=== PATIENT | female | born 1965 | race Caucasian/White ===

== ENCOUNTER 2022-04-16 09:55 | Emergency (ER) | payer OTHER, SELFPAY ==
--- NOTE | ~2022-04-16 | XR_ITS ---
EXAMINATION: XR ankle RT min 3V DATE: 04/16/2022 10:21 INDICATION: Diffuse right ankle pain post injury TECHNIQUE: Anteroposterior, oblique, mortise, and lateral views of the right ankle were obtained. COMPARISON: None. FINDINGS: Nondisplaced transverse fracture across the lateral malleolus which is seen medial cortex 1 cm below level of the tibiotalar joint line consistent with a Marques type A fracture. There is overlying soft t issue swelling. No other fractures identified. Small heterotopic ossicles near the tip the medial mal leolus likely sequela of chronic deltoid ligament sprain with no overlying soft tissue swelling to el evate suspicion for acute deltoid ligament sprain. Joint spaces are normal. Moderate-sized right ankl e joint effusion. Moderate-sized plantar calcaneal spur. IMPRESSION: 1. Nondisplaced Marques type B fracture at the lateral malleolus with moderate sized right ankle joint effusion. Reviewed, dictated and finalized at location A. IMPRESSION: 1. Nondisplaced Marques type B fracture at the lateral malleolus with moderate si zed right ankle joint effusion.
[2022-04-16 10:06] VITALS: BP 128/82; PULSE 73; RESP 16; TEMP 35.8; O2SAT 100
--- NOTE | 2022-04-16 10:10 | ED.LOWEXIN ---
HPI - Extremity Injury (Lower) General Chief Complaint: Extremity Injury, Lower Stated Complaint: Right Ankle Pain Time Seen by Provider: 04/16/22 10:25 Source: patient, RN notes reviewed and old records reviewed Mode of arrival: ambulatory Limitations: no limitations History of Present Illness HPI Narrative: 56-year-old female presents to the [facility] with right ankle pain after rolling it yesterday. Bruising noted to the lateral aspect. Swelling noted to the entire ankle. Has been using crutches but still walking on it since yesterday. Onset (ago): day(s) (1) Related Data Allergies Allergy/AdvReac Type Severity Reaction Status Date / Time No Known Allergies Allergy Verified 04/16/22 10:55 Review of Systems Review of Systems: All systems reviewed & are unremarkable except as noted in HPI and below Constitutional: Constitutional: Reports no additional constitutional complaints, Denies chills and Denies fever(s) Eyes: Eyes: Reports no additional eye complaints ENT: Reports system reviewed and no additional complaints, except as documented Cardiovascular: Cardiovascular: Reports no additional cardiovascular complaints Respiratory: Respiratory: Reports no additional respiratory complaints Gastrointestinal: Gastrointestinal: Reports no additional gastrointestinal complaints Musculoskeletal: Musculoskeletal: Reports as per HPI, Reports arthralgias (Right ankle) and Reports joint swelling (Right ankle) Integumentary/Breasts: Skin/Breast: Reports system reviewed and no additional complaints, except as docu Neurologic: Reports system reviewed and no additional complaints, except as documented Psychiatric: Psychiatric: Reports no additional psychiatric complaints Allergic/Immunologic: Allergic/Immunologic: Reports no additional allergic/immunologic complaints PMFSH Past Medical History Medical History (Updated 04/16/22 @ 12:10 by Glendy Cruz APRN) Patient denies medical problems Surgical History Surgical History (Updated 04/16/22 @ 12:10 by Glendy Cruz APRN) No pertinent past surgical history Social History Social History (Updated 04/16/22 @ 12:10 by Glendy Cruz APRN) Gender identity (if verbalized by the patient): Female Comments At the time of my signature, I reviewed and agree with the nursing past medical, surgical, social, and family history. There is no relevant family history pertinent to the patient complaint. Exam Const: General: healthy appearing, no acute distress, alert and well nourished Nutritional Appearance: well nourished Orientation/consciousness: patient oriented x3 Limitations: no limitations HENMT: Head: normal to inspection Ears: external ears normal Eyes: General: appearance normal, both eyes and all related structures Pupils: Equal, round and reactive pupils present Neck: Neck: normal visual inspection, no lymphadenopathy and no meningeal signs Chest: Chest palpation & inspection: normal inspection of the chest Resp: Effort & Inspection: normal respiratory effort and no use of accessory muscles Auscultation: clear to auscultation bilaterally, no crackles, no rales, no rhonchi and no wheezes Cardio: Rate: regular rate Rhythm: regular rhythm Back/Spine/Pelvis: Back: no CVA tenderness and No back tenderness Skin: General skin exam: normal color Rashes: no rashes Wounds: no wounds Neuro: General: patient oriented x3, moves all extremities, no meningeal signs and no focal motor deficits Cranial nerves: Yes Equal, round and reactive pupils present Speech: normal speech Gait exam (Neuro): Normal gait present Extrem: General: normal to inspection, full ROM and capillary refill normal Right lower extremity: ankle Details: tenderness Location: of the lateral malleolus, swelling Details: diffusely, abnormal ROM Details: pain with active ROM and pain with passive ROM and ecchymosis (Lateral right foot, lateral malleolus); no crepitus, no foreign bodies and n
== END 2022-04-16 11:22 | disposition home or self-care (01) ==
PROVIDERS: Emergency Provider Nurse Practitioner; PCP Family Medicine
DX: S82.64XA Nondisplaced fracture of lateral malleolus of right fibula, initial encounter for closed fracture (principal); X50.9XXA Other and unspecified overexertion or strenuous movements or postures, initial encounter
CPT/HCPCS: 29505; 73610; 99214; G0463